=== PATIENT | female | born 1950 | race Caucasian/White ===

== ENCOUNTER → 2017-10-10 | Outpatient (CLI) | payer OTHER, MEDICARE | LOC: FIMAGING 15:00 | PROVIDERS: ATTEND Orthopaedic Surgery | DX: Z01.818 Encounter for other preprocedural examination (principal); M17.11 Unilateral primary osteoarthritis, right knee ==

== ENCOUNTER 2017-10-24 08:49 | Observation (INO) | payer OTHER, MEDICARE ==
--- NOTE | 2017-10-24 06:27 | PDHPUP ---
History & Physical Update H&P update statement: This history and physical update is based on an assessment of the patient which was completed after admission or registration (within 24 hours), but prior to the surgery/procedure. H&P update: no change in patient's condition since H&P completed
--- NOTE | 2017-10-24 06:28 | PDIAF ---
- Diagnosis Diagnosis: right knee djd Code Status: Full Code - Medication Management Discharge Medications: Medications to Continue on Transfer Citalopram [CeleXA] 20 mg PO DAILY 10/06/17 [Last Taken Unknown] Herbals/Supplements -Info Only 1 ea PO DAILY 10/06/17 [Last Taken Unknown] Hydroxychloroquine Sulfate [Plaquenil 200 mg (*)] 200 mg PO BID 10/06/17 [Last Taken Unknown] Levothyroxine Sodium 50 mcg PO DAILY 10/06/17 [Last Taken Unknown] Discharge Medications: Refer to the Discharge Home Medication list for PRN reason. - Orders Services needed: Physical Therapy Diet Recommendation: no restrictions on diet Diet Texture: Regular Texture Diet Activity/Weight Bearing Restrictions: wbat. rom as angelina. keep dressing. if dressing becomes saturated, change daily. may shower without bandage. f/u at two weeks. seek attn for increasing pain, chest pain, shortness of breath, drainage or other focal complaint - Follow Up Care Current Providers and Referrals: Doctor Not,On Staff, MD [Primary Care Provider] -
[~2017-10-24 08:49] MED LIST: NS IV ONE; ROPIVACAINE 0.2% 80 MG, EPINEPHrine 0.2 MG, KETOROLAC TROMETHAMINE 30 MG, morphINE 10 M... IU ONE; TRANEXAMIC ACID IV ONE; VANCOMYCIN IV ONE; VANCOMYCIN PHARMACY TO DOSE MISC ONE
[2017-10-24] MEDS ORDERED: ceFAZolin 1 GM/5 ML SYR ONE (09:48)
[2017-10-24] MEDS ORDERED: THROMBIN (BOVINE) 5,000 UNIT VIAL TP ONE (09:48)
[2017-10-24] MEDS ORDERED: CALCIUM CHLORIDE 1 GM/10 ML INJ ONE (09:48)
[2017-10-24] MEDS ORDERED: ACETAMINOPHEN 325 MG TAB PO ONE (10:32)
[2017-10-24] MEDS ORDERED: FAMOTIDINE 20 MG TAB PO ONE (10:32)
[2017-10-24] MEDS ORDERED: MIDAZOLAM 2 MG/2 ML VIAL IVP ONE (10:49)
--- NOTE | 2017-10-24 10:49 | PDANEPAE ---
ANE History of Present Illness right TKA ANE Past Medical History - Cardiovascular History Hx Hypertension: No Hx Arrhythmias: No Hx Chest Pain: No Hx Coronary Artery / Peripheral Vascular Disease: No Hx CHF / Valvular Disease: No Hx Palpitations: No - Pulmonary History Hx COPD: No Hx Asthma/Reactive Airway Disease: No Hx Recent Upper Respiratory Infection: No Hx Oxygen in Use at Home: No Hx Sleep Apnea: No Sleep Apnea Screening Result - Last Documented: Negative - Neurologic History Hx Cerebrovascular Accident: No Hx Seizures: No Hx Dementia: No - Endocrine History Hx Diabetes: No Hypothyroid: Yes Hyperthyroid: No Obesity: no Endocrine History Comment: hypothyroid - Neurological & Psychiatric Hx Hx Neurological and Psychiatric Disorders: Yes Neurological / Psychiatric History Comment: anxiety-on Rx. Hx of Neck pain - Cancer History Hx Cancer: No - Congenital Disorder History Hx Congenital Disorders: No - GI History Hx Gastrointestinal Disorders: No - Other Health History Other Health History: R knee pain. POSITIVE for RA factor-on plaquenil-for joint pain. L cataract. Hot flashes. - Chronic Pain History Chronic Pain: Yes (R knee) - Surgical History Prior Surgeries: heart cath . lipoma excised shoulder/back ANE Review of Systems Review of systems is: negative Review of Systems: - Exercise capacity Exercise capacity: >=4 METS METS (RN): 4 METS ANE Patient History - Allergies Allergies/Adverse Reactions: amoxicillin Allergy (Intermediate, Verified 10/10/17 10:45) Tingling of mouth/throat adhesive tape Allergy (Verified 10/10/17 10:45) fragrances Allergy (Uncoded 10/10/17 10:45) Unknown - Home Medications Home Medications: Citalopram [CeleXA] 20 mg PO DAILY 10/06/17 [Last Taken Unknown] Herbals/Supplements -Info Only 1 ea PO DAILY 10/06/17 [Last Taken Unknown] Hydroxychloroquine Sulfate [Plaquenil 200 mg (*)] 200 mg PO BID 10/06/17 [Last Taken Unknown] Levothyroxine Sodium 50 mcg PO DAILY 10/06/17 [Last Taken Unknown] - NPO status NPO Status: no food or drink >8 hours - Anes Hx Anes Hx: no prior problems - Smoking Hx Smoking Status: Former smoker - Alcohol Use Alcohol Use: Occasionally (3 week) ANE Labs/Vital Signs - Vital Signs Vital Signs: reviewed preoperatively; see RN documention for details Height: 158.75 cm Weight: 74.843 kg ANE Physical Exam - Airway Mallampati Score: Class 2 Mouth exam: normal dental/mouth exam - Pulmonary Pulmonary: no respiratory distress - Cardiovascular Cardiovascular: regular rate and rhythym - ASA Status ASA Status: II ANE Anesthesia Plan Anesthesia Plan: spinal Regional Anesthesia: adductor canal FNB
[2017-10-24] MEDS ORDERED: MIDAZOLAM 2 MG/2 ML VIAL ONE (11:10)
[2017-10-24] MEDS ORDERED: CYCLOBENZAPRINE 10 MG TAB PO PRN (11:43)
[2017-10-24] MEDS ORDERED: diphenhydrAMINE 25 MG CAP PO PRN (11:43)
[2017-10-24] MEDS ORDERED: traMADol 50 MG TAB PO PRN (11:43)
[2017-10-24] MEDS ORDERED: LACTULOSE 20 GM/30 ML UDCUP PO PRN (11:43)
[2017-10-24] MEDS ORDERED: TEMAZEPAM 15 MG CAP PO PRN (11:43)
[2017-10-24] MEDS ORDERED: PROMETHAZINE HCL 25 MG SUPPR PR PRN (11:43)
[2017-10-24] MEDS ORDERED: BISACODYL 10 MG SUPP PR PRN (11:43)
[2017-10-24] MEDS ORDERED: ONDANSETRON 4 MG/2 ML VIAL IVP PRN ×2 (11:43→13:29)
[2017-10-24] MEDS ORDERED: METOCLOPRAMIDE 10 MG/2 ML VIAL IVP PRN (11:43)
[2017-10-24] MEDS ORDERED: ONDANSETRON DISINTEGRATING 4 MG TAB PO PRN (11:43)
[2017-10-24] MEDS ORDERED: PROMETHAZINE HCL 25 MG/ML INJ IVP PRN ×2 (11:43→13:29)
[2017-10-24] MEDS ORDERED: POLYETHYLENE GLYCOL 3350 17 GM PKT PO PRN (11:43)
[2017-10-24] MEDS ORDERED: MAGNESIUM HYDROXIDE 30 ML UDCUP PO PRN (11:43)
[2017-10-24] MEDS ORDERED: DIPHENOXYLATE/ATROPINE LOMOTIL 1 TAB PO PRN (11:43)
[2017-10-24] MEDS ORDERED: LIDOCAINE 2% 5 ML SDV ONE (11:50)
[2017-10-24] MEDS ORDERED: BUPIVACAINE 0.5% 30 ML SDV ONE (11:51)
[2017-10-24] MEDS ORDERED: PROPOFOL/EMULSION 500 MG/50 ML BOTTLE IV ONE (11:51)
[2017-10-24] MEDS ORDERED: LR 1,000 ML IV SCH (12:00)
[2017-10-24] MEDS ORDERED: PROPOFOL 200 MG/20 ML VIAL ONE (12:55)
--- NOTE | 2017-10-24 13:28 | POSTANESTH ---
Post Anesthetic Evaluation Cardiovascular Status: Normal, Stable Respiratory Status: Normal, Stable Level of Consciousness/Mental Status: Can Participate in Eval Pain Control: Adequate, Prn Tx Ordered Nausea/Vomiting Control: Adequate, Prn Tx Ordered Complications Possibly Related to Anesthesia: None Noted
[2017-10-24] MEDS ORDERED: HYDROmorphONE/DILAUDID 2 MG/ML INJ IVP PRN (13:29)
[2017-10-24] MEDS ORDERED: oxyCODONE IR 5 MG TAB PO PRN (13:29)
[2017-10-24] MEDS ORDERED: ACETAMINOPHEN 500 MG TAB PO PRN (13:29)
[2017-10-24] MEDS ORDERED: fentaNYL 100 MCG/2 ML INJ IVP PRN (13:29)
[2017-10-24] MEDS ORDERED: NALOXONE HCL 0.4 MG/ML INJ IVP PRN (13:29)
[2017-10-24] MEDS ORDERED: ALBUTEROL 3 ML DEYVIAL IH PRN (13:29)
[2017-10-24] MEDS ORDERED: ceFAZolin 2 GM/DEXTROSE 100 ML IV SCH (14:00)
[2017-10-24] MEDS: ACETAMINOPHEN 325 MG TAB PO SCH ×3 (15:46→23:47)
[2017-10-24] MEDS: TRANEXAMIC ACID 650 MG TAB PO SCH ×3 (15:47→18:05)
[2017-10-24] MEDS: oxyCODONE IR 5 MG TAB PO PRN (18:04)
[2017-10-24] MEDS: HYDROXYCHLOROQUINE SULFATE 200 MG TAB PO SCH (18:06)
[2017-10-24] MEDS: CITALOPRAM 20 MG TAB PO SCH (18:06)
[2017-10-24] MEDS: SENNOSIDES/DOCUSATE SODIUM TAB PO SCH (20:05)
[2017-10-24] MEDS: FAMOTIDINE 20 MG TAB PO SCH (20:05)
[2017-10-24] MEDS: ASPIRIN 325 MG TAB PO SCH (20:05)
[2017-10-25] MEDS: TRANEXAMIC ACID 650 MG TAB PO SCH ×2 (01:57→11:32)
[2017-10-25] MEDS: ACETAMINOPHEN 325 MG TAB PO SCH ×2 (05:25→11:31)
--- NOTE | 2017-10-25 06:53 | PDIAF ---
- Diagnosis Diagnosis: right knee djd Code Status: Full Code - Medication Management Discharge Medications: Medications to Continue on Transfer Citalopram [CeleXA 20 MG] 20 mg PO DAILY 10/06/17 [Last Taken 10/23/17] Herbals/Supplements -Info Only 1 ea PO DAILY 10/06/17 [Last Taken 10/21/17] Hydroxychloroquine Sulfate [Plaquenil 200 mg (*)] 200 mg PO BIDMEAL 10/06/17 [ Last Taken 10/23/17] Levothyroxine Sodium 50 mcg PO DAILY 10/06/17 [Last Taken 10/23/17] Aspirin [Aspirin 325 mg (*)] 325 mg PO DAILY tab 10/25/17 [Last Taken Unknown] oxyCODONE IR [Oxycodone Ir (*)] 5 - 10 mg PO Q3HRS PRN #50 tab 10/25/17 [Last Taken Unknown] Discharge Medications: Refer to the Discharge Home Medication list for PRN reason. - Orders Services needed: Physical Therapy Diet Recommendation: no restrictions on diet Diet Texture: Regular Texture Diet Activity/Weight Bearing Restrictions: wbat. rom as angelina. keep dressing. if dressing becomes saturated, change daily. may shower without bandage. f/u at two weeks. seek attn for increasing pain, chest pain, shortness of breath, drainage or other focal complaint Additional Instructions: wbat rom as angelina keep dressing if dressing becomes saturated, change daily may shower without bandage f/u at two weeks seek attn for increasing pain, chest pain, shortness of breath, drainage or other focal complaint TOTAL JOINT ARTHROPLASTY DISCHARGE INSTRUCTIONS 1. Your surgeon follows the [facility] protocol for reducing your risk of DVT (blood clots) following surgery. Medication will be ordered to prevent blood clots. A sudden increase in calf pain and/or swelling could indicate a blood clot in your leg. If this occurs, please call your surgeon or his/her clinical physician assistant. An ultrasound of the leg may be necessary to diagnose a blood clot. If you have conditions that make you a higher risk for blood clots, your surgeon may use more aggressive ways to prevent them. Notify your surgeon if you think you are a high risk for blood clots. 2. Wear your white surgical stockings (MASSIEL hose) for 2 weeks. This decreases your swelling and may help prevent blood clots. It is ok to remove MASSIEL hose at night time to give your legs a break. 3. Swelling and bruising in the surgical leg is common. If you feel that it is excessive, please notify your surgeon. 4. Elevate your surgical leg with the ankle above the hip several times every day. Please keep the leg straight when you elevate by putting pillows under your foot. Do not put pillows under your knee. This will make being able to fully straighten more difficult. This is uncomfortable, but try to do it as much as possible. 5. For total knee replacements use compressive wrap on your knee for 3-5 days after surgery, then you can discontinue it. 6. Use a walker or crutches for 1-2 weeks. Progress your weight-bearing as tolerated. You may start to use a cane when you feel stable and safe. 7. You will receive physical therapy instructions in the hospital. Continue those exercises at home. There are additional exercises in the total joint booklet you were given before surgery. Outpatient physical therapy will begin 7- 10 days after surgery. Please schedule this in advance. 8. Use ice on your knee at least 3-5 times every day for 30 minutes. This helps reduce pain and swelling. Also use it at night before falling asleep. 9. Leave your surgical dressing in place for 2 weeks. Your dressing is water resistant, but not waterproof. Cover it with Saran Wrap or [id number] before showering. You may shower as soon as you feel safe entering a shower. If you notice bleeding from your incision 2 or 3 days after surgery, please notify your surgeon. 10. Due to narcotics, decreased activity and altered diet, most patients experience constipation after surgery. Use [id number] stool softeners while you are on narcotics. 11. You may drive a car when you are comfortable bearing weight, have good muscular control of your leg and are off narcotics. This usually occurs 2-4 weeks after surgery, depending on which leg was operated on. 12. If there are questions not addressed here, please refer the [facility] book given for more information. If you still have questions, please contact your surgeon s office. 13. If you have a life-threatening emergency, please call 911 and go to the emergency room immediately. For non-life threatening emergencies, please call your physicians office for advice before going to the emergency room. - Follow Up Care Current Providers and Referrals: Doctor Johnna,On Staff, [Primary Care Provider] - Vasile Mayorga MD [Medical Doctor] -
--- NOTE | 2017-10-25 07:18 | GDS ---
[f rep st] DISCHARGE SUMMARY ADMIT DIAGNOSIS: Right knee degenerative joint disease. DISCHARGE DIAGNOSIS: Right knee degenerative joint disease. PROCEDURE: Right total knee arthroplasty. OPERATIVE INDICATIONS: Edita is a 67-year-old woman who has end-stage arthritis to her right knee. Clinical and radiographic features are consistent with this. She has failed all attempts at conserva tive management. Therefore, recommended operative intervention. I have outlined the surgical proced ure, risks, benefits, and alternatives. She wished to proceed. Written consent was signed and place d in the patient's chart. HOSPITAL COURSE: The patient was admitted to the floor after uncomplicated total knee arthroplasty. She tolerated the procedure well. Postoperative course was uneventful. At the time of discharge, s he is tolerating an oral diet. Pain is well controlled on oral medicines. She is voiding without di fficulty. Dressing is clean, dry, and intact. She has no calf swelling, tenderness. Negative Lee Ann s. X-rays are stable with anatomic alignment. No fracture or lucency. Serial hematocrit has remain ed stable. DISCHARGE MEDICATIONS: Oxycodone 5 mg 1-2 every 4 hours p.r.n. pain, aspirin 325 mg p.o. daily. FOLLOWUP: At 2 weeks. Seek attention for increasing redness, swelling, drainage, discharge, or othe r focal complaints. /[id number]/MODL
[2017-10-25] MEDS: SENNOSIDES/DOCUSATE SODIUM TAB PO SCH (07:42)
[2017-10-25] MEDS: FAMOTIDINE 20 MG TAB PO SCH (07:43)
[2017-10-25] MEDS: HYDROXYCHLOROQUINE SULFATE 200 MG TAB PO SCH (07:43)
[2017-10-25] MEDS: CITALOPRAM 20 MG TAB PO SCH (07:43)
[2017-10-25] MEDS: ASPIRIN 325 MG TAB PO SCH (07:43)
[2017-10-25] MEDS: oxyCODONE IR 5 MG TAB PO PRN ×2 (07:50→11:31)
[2017-10-25 08:13] VITALS: BP 142/59
[2017-10-25] MEDS ORDERED: LEVOTHYROXINE 50 MCG TAB PO SCH (09:00)
--- NOTE | 2017-10-25 12:06 | ASMTCMCOM ---
CM Note CM Note Notes: Pt s/p R TKA. PT rec HHC, pt d/c with [facility] PT. Orders to be obtained via [employer]. Address/phone verified. Date Signed: 10/25/2017 12:06 PM Electronically Signed By:CLAUDIO Jo
--- NOTE | 2017-10-25 12:07 | ASDISCHSUM ---
Discharge Information Plan Status:Home with Home Health Medically Cleared to Leave: Discharge Date:10/25/2017 11:45 AM CM D/C Disposition:Home Health Service ADT D/C Disposition:Home Health Service Projected Discharge Date:10/25/2017 11:00 AM Transportation at D/C: Discharge Delay Reason: Follow-Up Date:10/25/2017 11:00 AM Discharge Slot: Final Diagnosis: Placement Information Referral Type:*Home Health Care Services Referral ID:[id number] Provider Name:[facility] Address 1[address] Address 2: City:[place] Selection Factors: State:[place] Patient Contact Information Contact Name:ROSY Relationship: Address:[address] City:[place] Alternate Phone: State/Zip Code:[place] [address] Email: Financial Information Financial Class:Medicare Primary Plan Desc:MEDICARE OUTPATIENT Primary Plan Number:[id number] Secondary Plan Desc:[employer]/MDR SUPPLEMENT Secondary Plan Number:[id number] Assessment Information BC CM Progress Note CM Note CM Note Notes: Pt s/p R TKA. PT rec HHC, pt d/c with [facility] PT. Orders to be obtained via [employer]. Address/phone verified. Date Signed: 10/25/2017 12:06 PM Electronically Signed By:CLAUDIO Jo Intervention Information Intervention Type:*Incorrect Registration Date of Service:10/24/2017 03:43 PM Patient Type:Inpatient Staff Member:MUSHTAQ Gonzales Susan Hours: Discipline: Severity: Comment:
--- NOTE | 2017-10-26 07:20 | GOP ---
[f rep st] OPERATIVE REPORT DATE OF OPERATION: 10/24/2017 SURGEON: Vasile Mayorga MD ENTERPRISE INTEGRATION DEVELOPER: Lopez Jin, CORNETIST, [facility], who was a medical necessity for the entirety of the case pr eoperative. PREOPERATIVE DIAGNOSIS: Right knee degenerative joint disease. POSTOPERATIVE DIAGNOSIS: Right knee degenerative joint disease. PROCEDURE PERFORMED: Right total knee arthroplasty. FINDINGS: SPECIMENS: To pathology, none. INDICATIONS: The patient is a 67-year-old woman with end-stage arthritis to her right knee. Clinica l and radiographic features are consistent with this. She has failed all attempts at conservative ma nagement. Therefore, recommended operative intervention. I have outlined the surgical procedure, ri sks, benefits, and alternatives. She wished to proceed, written consent was signed and placed in the patient's chart. DESCRIPTION OF PROCEDURE: The patient was identified in the preanesthesia area. The right knee beatriz rly demarcated as the operative site with indelible marker. She was given 1 g of vancomycin IV en ro niki to the operative suite, given a medication allergy. In the OR, a spinal anesthetic was placed fo llowed by sedation. She was positioned in the supine position on the operative table. Attention was turned to the right knee and lower extremity which was sterilely prepped and draped in the usual fas hion. Appropriate time-out procedure was carried out. The limb was exsanguinated with an Esmarch ba ndage. Tourniquet inflated to 275 mmHg. A standard anterior midline incision was made. Thick subcu taneous flaps were elevated, followed by a medial parapatellar arthrotomy. The knee demonstrated tri compartmental arthritis. Decision was made to proceed with total knee replacement. Two pins were th en placed across the medial femur, followed by the medial femoral check point, and the femoral array was affixed. A separate percutaneous incision was made over the mid pimentel. Two pins were then placed and the tibial reference array affixed, followed by the tibial check point over the proximal tibia. All bony landmarks were then entered into the computer in standard fashion. The marginal osteophyte s were withdrawn. The knee was balanced with the PlaySightOplasty software and the components were appropr iately positioned. Using the MAKOplasty robot, resections were made for a size 3 femur and a size 3 tibia. Trial reduction was carried out over a 3 x 9 mm polyethylene spacer. This was felt to be sta ble and appropriate with neutral limb alignment. The tibial and femoral arrays and check points were withdrawn. The trial components were removed and in a press-fit technique, the tibial and femoral c omponents were then pressed into position and a 3 x 9 mm polyethylene spacer was placed, confirmed to be fully seated. This allowed full extension of the knee and flexion without instability throughout the flexion-extension arc. Attention was turned to the patella which was everted, cut in a freehand cutting technique, and drill holes made for a size 32 all poly patella. This was likewise pressed into position using a press-fi t technique. The patella tracked centrally through the flexion-extension arc. The wound was copious ly irrigated. The capsule injected with a joint cocktail of ropivacaine, morphine, Toradol, and epin ephrine. The medial parapatellar arthrotomy closed using #1 Ethibond. The knee instilled with a pedro telet-rich plasma. Subcutaneous tissue closed using 2-0 Monocryl and the skin stapled. A sterile dr essing, followed by Nazario wrap and a Cryo/Cuff was then placed. The patient was awakened, extubated, t aken to the recovery room in good stable condition. TOTAL TOURNIQUET TIME: 50 minutes. COMPLICATIONS: None. IMPLANTS: A triathlon posterior stabilized femoral component size 3, size 3 tibial component, a 3 x 9 mm polyethylene spacer, and an asymmetric patella A32 10 mm thick. /[id number]/MODL
== END 2017-10-25 11:45 | disposition home health service (06) ==
LOC: INTOOBSV 10:08 → F3N 10:08
PROVIDERS: ADMIT Orthopaedic Surgery; ATTEND Orthopaedic Surgery
PROC: 0SRC0JZ Replacement of Right Knee Joint with Synthetic Substitute, Open Approach (ICD-10-PCS; principal; 2017-10-24 12:15)
DX: M17.11 Unilateral primary osteoarthritis, right knee (principal); E03.9 Hypothyroidism, unspecified; F41.9 Anxiety disorder, unspecified; Z88.0 Allergy status to penicillin; Z87.891 Personal history of nicotine dependence
CPT/HCPCS: 27447; 73560; 88311; 97116; 97161; 97165; C1776; G8978; G8979; G8980; G8987; G8988; G8989; J0171; J0690; J1885; J2250; J2270; J2704; J2795; J3370

== ENCOUNTER → 2017-12-06 | Outpatient (CLI) | payer OTHER, MEDICARE | LOC: BMCIMAGING 08:34 | PROVIDERS: ATTEND Orthopaedic Surgery | DX: Z47.1 Aftercare following joint replacement surgery (principal); M25.461 Effusion, right knee; Z96.651 Presence of right artificial knee joint ==

== ENCOUNTER → 2018-04-20 | Outpatient (CLI) | payer OTHER, MEDICARE | LOC: BMCIMAGING 09:11 | PROVIDERS: ATTEND Orthopaedic Surgery | DX: Z47.1 Aftercare following joint replacement surgery (principal); Z96.641 Presence of right artificial hip joint ==

== ENCOUNTER → 2018-05-03 | Outpatient (CLI) | payer OTHER, MEDICARE | LOC: BMCIMAGING 08:38 | PROVIDERS: ATTEND Internal Medicine | DX: Z12.31 Encounter for screening mammogram for malignant neoplasm of breast (principal); Z80.3 Family history of malignant neoplasm of breast ==

== ENCOUNTER → 2018-05-03 | Outpatient (CLI) | payer OTHER, MEDICARE | LOC: BMCIMAGING 11:09 | PROVIDERS: ATTEND Internal Medicine Rheumatology | DX: M79.671 Pain in right foot (principal); M79.672 Pain in left foot; M19.041 Primary osteoarthritis, right hand; M19.042 Primary osteoarthritis, left hand; M25.512 Pain in left shoulder; M15.1 Heberden's nodes (with arthropathy); M19.012 Primary osteoarthritis, left shoulder | CPT/HCPCS: 86235-90; 86812-90 ==

== ENCOUNTER → 2018-05-17 | Outpatient (CLI) | payer OTHER, MEDICARE | LOC: FIMAGING 13:11 | PROVIDERS: ATTEND Internal Medicine | DX: R92.8 Other abnormal and inconclusive findings on diagnostic imaging of breast (principal) ==

== ENCOUNTER → 2018-11-09 | Outpatient (CLI) | payer OTHER, MEDICARE | LOC: BMCIMAGING 08:41 | PROVIDERS: ATTEND Orthopaedic Surgery | DX: M25.561 Pain in right knee (principal); Z96.651 Presence of right artificial knee joint ==